=== PATIENT | female | born 1970 | race Native Hawaiian/Other Pacific Islander ===

== ENCOUNTER 2017-11-07 10:35 | Outpatient (CLI) | payer OTHER | END 2017-11-07 22:45 | disposition home or self-care (01) | LOC: RAD 10:35 | DX: J01.80 Other acute sinusitis (principal) ==

== ENCOUNTER 2020-05-06 05:05 | Emergency (ER) | payer OTHER ==
[~2020-05-06] VITALS: Ht 170.2 cm; Wt 99.8 kg
[2020-05-06 05:33] LABS: PLATELET COUNT 247 K/uL (152-353)
[2020-05-06 05:35] LABS: POTASSIUM 3.4 mmol/L (3.6-5.2)
[2020-05-06 05:58] LABS: PARTIAL THROMBOPLASTIN TIME 24.1 SECONDS (24.5-33.6)
[2020-05-06 07:00] VITALS: BP 145/74; TEMP 98.6
== END 2020-05-06 07:05 | disposition home or self-care (01) ==
LOC: ED 05:08
PROVIDERS: Family Medicine
DX: U07.1 COVID-19 (principal); R42 Dizziness and giddiness
CPT/HCPCS: 80053; 85027; 85610; 85730; 96374; 99284; J2930

== ENCOUNTER 2020-10-10 08:36 | Outpatient (CLI) | payer BC ==
[2020-10-10 10:04] LABS: PLATELET COUNT 307 K/uL (152-353)
[2020-10-10 10:41] LABS: POTASSIUM 4.3 mmol/L (3.6-5.2)
== END 2020-10-10 21:06 | disposition home or self-care (01) ==
LOC: LABW 08:36
PROVIDERS: ATTEND Obstetrics & Gynecology
DX: Z00.00 Encounter for general adult medical examination without abnormal findings (principal); Z12.31 Encounter for screening mammogram for malignant neoplasm of breast; Z13.228 Encounter for screening for other metabolic disorders; Z13.6 Encounter for screening for cardiovascular disorders; Z13.220 Encounter for screening for lipoid disorders
CPT/HCPCS: 36415; 80053; 80061; 84439; 84443; 85027

== ENCOUNTER 2021-10-15 10:32 | Outpatient (CLI) | payer BC | END 2021-10-15 19:53 | disposition home or self-care (01) | LOC: MAMMO 10:32 | PROVIDERS: ATTEND Obstetrics & Gynecology | DX: Z12.31 Encounter for screening mammogram for malignant neoplasm of breast (principal) ==

== ENCOUNTER 2022-10-17 08:31 | Outpatient (CLI) | payer BC | END 2022-10-17 17:00 | disposition home or self-care (01) | LOC: MAMMO 08:31 | PROVIDERS: ATTEND Obstetrics & Gynecology | DX: Z12.31 Encounter for screening mammogram for malignant neoplasm of breast (principal) ==